=== PATIENT | male | born 1960 | race Caucasian/White ===

== ENCOUNTER 2021-10-31 05:38 | Day surgery (SDC) | payer OTHER ==
[2021-10-25 11:04] LABS: BASOPHILS % (AUTO) 0.6 % (0-1); EOSINOPHILS # (AUTO) 0.1 X10'3 (0-0.9); EOSINOPHILS % (AUTO) 1.4 % (0-6); LYMPHOCYTES # (AUTO) 2.2 X10'3 (1.1-4.8); LYMPHOCYTES % (AUTO) 28.6 % (21-51); MEAN CORPUSCULAR HEMOGLOBIN 31.1 PG (27.0-31.0); MEAN CORPUSCULAR VOLUME 91.5 FL (78-98); MEAN PLATELET VOLUME 8.7 FL (7.4-10.4); MONOCYTES # (AUTO) 0.7 X10'3 (0-0.9); MONOCYTES % (AUTO) 9.6 % (2-12); NEUTROPHILS # (AUTO) 4.6 X10'3 (1.8-7.7); NEUTROPHILS % (AUTO) 59.8 % (42-75); PRE OP HEMATOCRIT 48.6 % (42.0-52.0); PRE OP HEMOGLOBIN 16.5 g/dL (14.0-17.9); PRE OP PLATELET COUNT 216 X10'3 (140-440); RED BLOOD COUNT 5.31 X10'6 (4.70-6.10); RED CELL DISTRIBUTION WIDTH 13.6 % (11.5-14.5)
[2021-10-25 11:05] LABS: CLARITY,URINE CLEAR (Clear); COLOR,URINE YELLOW (Yellow); GLUCOSE, URINE NEGATIVE (Neg); KETONES,URINE NEGATIVE (Neg); LEUKOCYTE ESTERASE ,URINE NEGATIVE (Neg); NITRITES, URINE NEGATIVE (Neg); OCCULT BLOOD,URINE NEGATIVE (Neg); PROTEIN,URINE NEGATIVE (Neg); UROBILINOGEN,URINE 0.2 E.U/dL (0.2-1.0)
[2021-10-25 11:06] LABS: UA COLLECTION TYPE VOIDED
[2021-10-25 11:15] LABS: PRE OP INR 1.1 INR; PRE OP PROTIME 11.2 SECONDS (9.0-12.0)
[2021-10-25 11:17] LABS: ALBUMIN 3.9 G/DL (3.4-5.0); ALBUMIN/GLOBULIN RATIO 1.1 (1.1-1.5); ALKALINE PHOSPHATASE 77 IU/L (46-116); BLOOD UREA NITROGEN 14 MG/DL (7-18); BUN/CREATININE RATIO 14.1 (5.4-32.0); CALCIUM 8.9 MG/DL (8.5-10.1); CHLORIDE 104 MMOL/L (99-107); CREATININE 0.99 MG/DL (0.60-1.10); PRE OP ALT 29 U/L (30-65); PRE OP ANION GAP 9 (8-16); PRE OP AST 17 U/L (10-37); PRE OP BILIRUB, TOTAL 0.6 MG/DL (0.0-1.0); PRE OP GLUCOSE 89 MG/DL (70-104); PRE OP POTASSIUM 4.1 MMOL/L (3.4-5.1); PRE OP SODIUM 140 MMOL/L (135-145); TOTAL CARBON DIOXIDE 26.8 MMOL/L (24-32); TOTAL PROTEIN 7.5 G/DL (6.4-8.2); eGFR 77 ML/MIN
[~2021-10-31] VITALS: Ht 180.3 cm; Wt 97.9 kg
[2021-10-31] VITALS (19 sets, daily range): BP systolic 103–138; BP diastolic 55–96
[~2021-10-31 05:38] MED LIST: FLO0.4C PO; LISI20TA28 PO; OMEP20CA16 PO; acetaminophen 325mg tablet PO ONE; ceFAZolin inj. 2,000 MG in dextrose 5%-water 100 ML IV ONE; celeCOXIB 100mg capsule PO ONE; famotidine 20mg tablet PO ONE; gabapentin 300mg capsule PO ONE; metoclopramide 5 mg/ml inj IV ONE; oxyCODONE SR 10mg (sust. release) tab -2 tabs (20mg) PO ONE; ringers solution, lacted 1,000 ML IV SCH; tranexamic acid inj. 1,000 MG in normal saline 100ml IV soln 90 ML IV ONE; vancomycin 1,500 MG in NS 300ml IV soln IV ONE
[2021-10-31] MEDS ORDERED: HYDROmorphone inj. 0.5 MG/0.5 ML DISP.SYRIN IV PRN (06:35)
[2021-10-31] MEDS ORDERED: diphenhydrAMINE 25mg capsule PO PRN ×2 (06:35)
[2021-10-31] MEDS ORDERED: bisacodyl 10mg suppository rectal RC PRN (06:35)
[2021-10-31] MEDS ORDERED: ondansetron/PF 4mg/2ml inj IV PRN ×2 (06:35→09:15)
[2021-10-31] MEDS ORDERED: potassium cl 20mEq in 1/2 NS 1,000 ML IV SCH (06:35)
[2021-10-31] MEDS ORDERED: acetaminophen 325mg tablet PO PRN (06:35)
[2021-10-31] MEDS ORDERED: naloxone 0.4 mg/ml inj IV PRN (06:35)
[2021-10-31] MEDS ORDERED: oxyCODONE/APAP 10/325mg tablet PO PRN ×2 (06:35)
[2021-10-31] MEDS ORDERED: magnesium hydroxide 30ml (MOM) UD suspension PO PRN (06:35)
[2021-10-31] MEDS ORDERED: HYDROmorphone 1 mg/ml syringe IV PRN (06:35)
--- NOTE | 2021-10-31 07:13 | NUR ---
no ointment or dvd done by patient pedal pulses marked
[2021-10-31] MEDS: gabapentin 300mg capsule PO SCH ×2 (08:00→13:46)
[2021-10-31] MEDS ORDERED: multivitamins, therapeutics tablet PO SCH (08:00)
[2021-10-31] MEDS ORDERED: ascorbic acid 500mg tablet PO SCH (08:00)
[2021-10-31] MEDS ORDERED: MIDAZolam 1 MG/ML 5ML VIAL ONE (08:13)
[2021-10-31] MEDS ORDERED: fentaNYL/PF 50MCG/1 ML 2ML syringe ONE (08:13)
[2021-10-31] MEDS ORDERED: aspirin 325mg tablet PO SCH (08:30)
[2021-10-31] MEDS ORDERED: ketorolac trometh. 30mg/ml inj. ONE (08:43)
[2021-10-31] MEDS ORDERED: cloNIDine hcl/PF 100mcg/ml inj ONE (08:43)
[2021-10-31] MEDS ORDERED: epiNEPHrine 1 mg/ml inj ONE (08:43)
[2021-10-31] MEDS ORDERED: vancomycin 1,000mg inj ONE (08:43)
[2021-10-31] MEDS ORDERED: ROPIVAcaine 0.5% (5mg/ml) 30ml vial ONE (08:43)
[2021-10-31] MEDS ORDERED: proCHLORperazine 10 MG/2 ml inj IV PRN (09:15)
[2021-10-31] MEDS ORDERED: ringers solution, lacted 1,000 ML IV SCH (09:15)
[2021-10-31] MEDS ORDERED: ROPIVAcaine 0.2%/PF PUMP/bolus 545 ML ADDCANAL SCH (09:15)
[2021-10-31] MEDS ORDERED: ROPIVAcaine 0.2% (10 MG/5 ML) BOLUS INJECTION ADDCANAL PRN (09:15)
[2021-10-31] MEDS ORDERED: meperidine/PF 25mg/ml syringe IV PRN ×3 (09:15)
[2021-10-31] MEDS ORDERED: morphine 2 MG/ML inj. syringe IV PRN (09:15)
[2021-10-31] MEDS ORDERED: morphine 4 MG/ML inj SYRINge IV PRN (09:15)
[2021-10-31] MEDS ORDERED: propofol inj 40 ML IV ONE (09:45)
[2021-10-31] MEDS ORDERED: ePHEDrine 50MG/ML INJ. ONE (09:46)
[2021-10-31] MEDS ORDERED: dexamethasone sod phosphate 4mg/ml inj. ONE (09:46)
[2021-10-31] MEDS ORDERED: diphenhydrAMINE 50 mg/ml inj ONE (09:46)
[2021-10-31] MEDS ORDERED: meperidine/PF 25mg/ml syringe ONE (10:10)
--- NOTE | 2021-10-31 10:12 | NUR ---
Received from OR via BED, accompanied by Anesthesiologist DR MONREAL and report given by Anesthesiologist AND GAS PLUMBING INSPECTOR. PT DROWSY, DENIES PAIN. RIGHT KNEE W/DRSG, LEG WRAP, POWDER PACK CDI. ADC CATHETER INTACT. PT RESTING COMFORTABLE. Addendum: 10/31/21 at 1040 by Leora Mariano RN Amended: Links added.
--- NOTE | 2021-10-31 11:42 | NUR ---
Report called to receiving nurse. Transferred via BED, 1 BAG OF Belongings SENT W/PT TO ROOM 4022A. BLL, CALL LIGHT GIVEN, SIDE RAILS UP X 2. PT STATES HE IS BEGINNING TO HAVE PAIN IN RIGHT KNEE, DEMONSTRATED USE OF ON-Q, PT GAVE HIMSELF A BOLUS DOSE, INCREASED RATE TO 6ML. RECEIVING RN NOTIFIED OF PTS ARRIVAL. PT ORIENTED TO SELF, SAFETY, CALL LIGHT. Special Issues communicated to receiving nurse. YES. Addendum: 10/31/21 at 1159 by Leora Mariano RN Amended: Links added.
--- NOTE | 2021-10-31 12:15 | NUR ---
Received patient to room 4022A patient alert and oriented in no apparent acute distress does c/o pain to right knee. ONQ ball to right knee on 6ml/hr and educated how to titrate and give self bolus. Patient has right knee wrap with koolpak and YESICA dressing CDI. Oriented patient to call light and placed within patient's reach. Post op vital initiated. Will continue to monitor.
[2021-10-31] MEDS ORDERED: tranexamic acid inj. 980 MG in normal saline 100ml IV soln 90.2 ML IV ONE (12:52)
[2021-10-31] MEDS ORDERED: cefazolin/dext.iso 2gm/100ml 100 ML IV SCH (16:00)
--- NOTE | 2021-10-31 18:36 | NUR ---
MUKESH Mcguire in to discuss discharge teaching with patient and will dc.
--- NOTE | 2021-10-31 18:58 | NUR ---
Pt taken by wheelchair to be picked up by family/friend. IV out, pt A/O x4, discharge paperwork signed and given to pt. Questions and concerns answered. Follow-up appt made. Vitals stable.
[2021-10-31] MEDS ORDERED: VANCOMYCIN 1,500MG inj. 1,500 MG in normal saline 500ml IV soln 300 ML IV ONE (20:00)
[2021-10-31] MEDS ORDERED: sennosides 8.6mg tablet PO SCH (21:00)
[2021-11-01] MEDS ORDERED: pantoprazole 40mg Tablet.DR PO SCH (08:00)
[2021-11-01] MEDS ORDERED: tamsulosin 0.4mg capsule PO SCH (08:00)
[2021-11-01] MEDS ORDERED: lisinopril 20mg tablet PO SCH (08:00)
[2021-11-01] MEDS ORDERED: celeCOXIB 100mg capsule PO SCH (20:00)
== END 2021-10-31 19:07 | disposition home or self-care (01) ==
LOC: PAS 05:38 → ORTHO 4S 06:37 → UNDOADMIN 06:37 → UNDODISIN 19:07 → PAS 19:07
PROVIDERS: ATTEND Orthopaedic Surgery
DX: M17.11 Unilateral primary osteoarthritis, right knee (principal); K21.9 Gastro-esophageal reflux disease without esophagitis; Z79.01 Long term (current) use of anticoagulants; Z79.899 Other long term (current) drug therapy; Z98.890 Other specified postprocedural states; G89.18 Other acute postprocedural pain; Z87.891 Personal history of nicotine dependence
CPT/HCPCS: 27447; 36415; 64447; 73560; 76942; 80053; 81003; 82948; 85025; 85610; 85730; 86885; 86900; 86901; 87081; 87811; 97110; 97116; 97161; C1713; C1776; J0171; J0690; J0735; J1100; J1200; J1885; J2175; J2250; J2704; J2765; J2795; J3010; J3370; J3490; J7030; J7040; J7060; J7120; Z7506; Z7508; Z7512; A4215; A7000; A9272; G0378